=== PATIENT | female | born 1980 | race Caucasian/White ===

== ENCOUNTER 2022-06-08 16:25 | Emergency (ER) | payer OTHER, SELFPAY ==
[2022-06-08 16:34] VITALS: BP 145/75; PULSE 112; RESP 18; TEMP 36.4; O2SAT 100; BMI 37.1
[2022-06-08 17:11] LABS: Lactate* 1.8 mmol/L (0.5-1.9)
[2022-06-08 17:14] LABS: Appearance Urine Clear (Clear); Bilirubin Urine Negative (Negative); Blood Urine Negative (Negative); Color Urine Yellow (Yellow); Glucose Urine Negative (Negative); Ketones Urine Negative (Negative); Leukocyte Esterase Urine Negative (Negative); Nitrite Urine Negative (Negative); Protein Urine Negative (Negative); Specific Gravity Urine <= 1.005 (1.000-1.030); Urobilinogen Urine 0.2 (0.2-1.0); pH Urine 6.5 (5.0-8.5)
[2022-06-08 17:24] LABS: Squamous Epithelial Cell Urine Few (None-Few); WBC Urine 0-2 (0-5)
[2022-06-08] MEDS: 0.9 % SODIUM CHLORIDE 1000 ml 1,000 ML IV (17:26)
[2022-06-08 17:27] LABS: Albumin* 4.2 g/dL (3.3-5.0); Basophils Percent Auto 0.1 % (0.0-3.0); Chloride* 108 mmol/L (96-114); Eosinophils Percent Auto 0.3 % (0.0-7.0); Hematocrit 41.3 % (33.0-51.0); Hemoglobin* 13.7 gm/dL (12.0-16.0); Immature Granulocytes Abs Auto 0.03 K/uL (0.00-0.30); Lymphocytes Percent Auto 21.2 % (20-44); Mean Corpuscular HGB Conc 33 gm/dL (32-36); Mean Corpuscular Hemoglobin 28 pg (26-34); Mean Corpuscular Volume 84 fL (80-100); Monocytes Percent Auto 9.3 % (0.0-11.0); Neutrophils Percent Auto 68.8 % (42.0-72.0); Platelet Count* 277 K/uL (140-440); RDW Coefficient of Variation % 14.4 % (11.5-15.5); Red Blood Count 4.94 m/uL (4.00-5.20); Sodium* 135 mmol/L (135-149); White Blood Count* 11.77 K/uL (4.50-11.00)
[2022-06-08 17:30] LABS: Carbon Dioxide* 21 mmol/L (20-32); Creatinine* 0.6 mg/dL (0.5-1.5); Estimated Glomerular Filt Rate 116 ml/min
[2022-06-08 17:31] LABS: Alanine Aminotransferase* 21 U/L (4-35); Alkaline Phosphatase* 82 U/L (40-150); Aspartate Amino Transferase* 30 U/L (12-35); Bilirubin Direct* 0.3 mg/dL (0.0-0.5); Bilirubin Total* 0.5 mg/dL (0.1-1.5); Blood Urea Nitrogen* 6 mg/dL (5-24); Calcium* 9.5 mg/dL (8.4-10.6); Glucose* 108 mg/dL (60-115); Total Protein* 7.9 g/dL (6.0-8.3)
[2022-06-08 17:33] LABS: C Reactive Protein* 1.4 mg/dL (0.5-1.0)
[2022-06-08 17:35] LABS: Slide Review Reflex No
[2022-06-08 18:01] VITALS: BP 133/70; PULSE 78; RESP 18; O2SAT 100
--- NOTE | 2022-06-08 18:09 | ED.GENADULT ---
HPI - General Adult General Chief complaint: Shortness of Breath/Dyspnea Stated complaint: ,SHOULDER,BACK PAIN,HPB - ON BLOOD THINNER Time Seen by Provider: 06/08/22 16:31 Source: patient Mode of arrival: ambulatory Limitations: no limitations History of Present Illness HPI narrative: 42-year-old female at 9 weeks gestation coming in today concerned about possibility of a blood clot. Patient states that she was recently diagnosed with a clotting disorder and was started on Lovenox this last Wednesday so 3 days ago. Since then she states that she has been vomiting multiple times, although she has had vomiting before this as well. She states that she has a soreness in her left shoulder. She states that she feels sweaty and short of breath and she has felt this way for 3 days now. She denies any abdominal cramping or vaginal bleeding. She denies any anterior chest pain. She states that she has no appetite. She feels nauseated all the time. Upon arrival to the ER patient was very anxious according to nursing staff, hyperventilating and was difficult for her to slow down her speech. Her blood pressure on presentation was 145/75. Patient has had a 2nd trimester loss with her previous . She also has a history of fatigue, obstructive sleep apnea, asthma and anxiety. She does have a prescription for lorazepam which she has not been taking. Related Data Home Medications Medication Instructions Recorded Confirmed enoxaparin 40 mg/0.4 mL mg 06/08/22 subcutaneous syringe Allergies Allergy/AdvReac Type Severity Reaction Status Date / Time Sulfa (Sulfonamide Allergy Verified 06/08/22 16:34 Antibiotics) Review of Systems Status of ROS: Reports: 10 or more systems reviewed and unremarkable except as noted in History and below [facility] Social History Smoking Status: Never smoker Do you use any of these nicotine containing products: None How often do you have a drink containing alcohol: monthly or less AUDIT-C Alcohol total score: 1 Non-prescribed substance use: denies use Exam Narrative: Exam Narrative: Overweight, well-developed patient in no acute distress although she is a bit anxious. Alert and oriented. Answers questions appropriately. Thoughts are goal oriented and rational. No tangential or magical thinking noted. Patient speaks in full sentences without needing to catch her breath. HEENT: Normocephalic atraumatic. Pupils are equally round reactive to light. Extraocular muscles are intact. Conjunctivae are moist without any icterus noted. Moist mucous membranes. Posterior pharynx is normal. Neck is soft without any lymphadenopathy or thyromegaly. No masses are appreciated. Cardiovascular: Heart is regular rate and rhythm S1 and S2 are present without any murmurs. Lungs: Clear to auscultation bilaterally no wheezes rhonchi or rales are appreciated. Patient takes deep breaths without any discomfort. Abdomen: Soft and nontender nondistended with normal bowel sounds. Extremities: Bilateral lower extremities are without edema. Normal DP and PT pulses. Skin: Well perfused without any obvious rashes. Skin is warm and dry, no diaphoresis evident on exam. Const: Vital Signs, click to edit/add: Vital Signs - 24 hr 06/08/22 16:34 06/08/22 18:01 Temperature 97.6 F Pulse Rate [Right Pulse Oximeter] 112 H 78 Respiratory Rate 18 18 Blood Pressure [Ri ght Forearm] 145/75 H 133/70 Pulse Oximetry 100 100 Oxygen Delivery Me thod Room Air Room Air Course Course Hospital Course: IV was started and patient received a L of normal saline and IV Zofran. She was feeling significantly better. Her lab work was unremarkable. Her blood pressure came down to 119 systolic in her pulse came down into the 70s. She remained at 100% on room air. I did go re-examine the patient and she stated that she was feeling significantly better. She stated that her heart was no longer pounding and that she did not feel nauseated or diaphoretic and that she was no longer feeling any shortness of breath. In fact patient was eating dinner without difficulty. Vital Signs Vital signs: Initial Vital Signs Temperature 97.6 F 06/08/22 16:34 Temperature Source Temporal Artery Scan 06/08/22 16:34 Pulse Rate 112 H 06/08/22 16:34 Respiratory Rate 18 06/08/22 16:34 Blood Pressure 145/75 H 06/08/22 16:34 Blood Pressure Mean 98 06/08/22 16:34 Blood Pressure Position Sitting 06/08/22 16:34 Pulse Oximetry 100 06/08/22 16:34 Oxygen Delivery Method 06/08/22 16:34 Vital Signs Temperature 97.6 F 06/08/22 16:34 Pulse Rate 112 H 06/08/22 16:34 Respiratory Rate 18 06/08/22 16:34 Blood Pressure 145/75 H 06/08/22 16:34 Pulse Oximetry 100 06/08/22 16:34 Oxygen Delivery Method 06/08/22 16:34 Temperature 97.6 F 06/08/22 16:34 Pulse Rate 78 06/08/22 18:01 Respiratory Rate 18 06/08/22 18:01 Blood Pressure 133/70 06/08/22 18:01 Pulse Oximetry 100 06/08/22 18:01 Oxygen Delivery Method 06/08/22 18:01 Medical Decision Making MDM Narrative Medical decision making narrative: 42-year-old female at 9 weeks gestation coming in today with shortness of breath, left shoulder pain with concerns of a PE. Given her normal examination and normal vital signs and the fact that she is on Lovenox I think the likelihood of a PE is very low. I did offer her the option of doing a chest CT we discussed risk benefit and using joint decision making we decided against it at this time and that the risk would outweigh the benefit. We discussed hydration and rest. We discussed following up as scheduled. We discussed returning to the ER should her symptoms worsen. Given that the patient was feeling significantly better after IV fluids I do not think any further management is needed at this time. Patient had no other concerns Medical Records Medical records reviewed: Yes I reviewed the patient's medical records Lab Data Lab results reviewed: Yes I reviewed the patient's lab results Labs: Lab Results 06/08/22 06/08/22 06/08/22 Range/Units 16:52 17:05 17:05 WBC 11.77 H (4.50-11.00) K/uL RBC 4.94 (4.00-5.20) m/uL Hgb 13.7 (12.0-16.0) gm/dL Hct 41.3 (33.0-51.0) % MCV 84 (80-100) fL MCH 28 (26-34) pg MCHC 33 (32-36) gm/dL RDW Coeff of Zana 14.4 (11.5-15.5) % Plt Count 277 (140-440) K/uL Neut % (Auto) 68.8 (42.0-72.0) % Lymph % (Auto) 21.2 (20-44) % [place] % (Auto) 9.3 (0.0-11.0) % Eos % (Auto) 0.3 (0.0-7.0) % Baso % (Auto) 0.1 (0.0-3.0) % Neut # (Auto) 8.10 H (1.7-7.0) K/uL Lymph # (Auto) 2.50 (0.90-2.90) K/uL [place] # (Auto) 1.10 H (0.00-0.90) K/UL Eos # (Auto) 0.00 (0.00-0.50) K/uL Baso # (Auto) 0.00 (0.00-0.30) K/uL Abs Immat Gran (auto) 0.03 (0.00-0.30) K/uL Sodium (135-149) mmol/L Potassium (3.6-5.1) mmol/L Chloride (96-114) mmol/L Carbon Dioxide (20-32) mmol/L BUN (5-24) mg/dL Creatinine (0.5-1.5) mg/dL Estimated Creat Clear Estimated GFR ml/min Glucose (60-115) mg/dL Lactate (0.5-1.9) mmol/L Calcium (8.4-10.6) mg/dL Total Bilirubin (0.1-1.5) mg/dL Direct Bilirubin (0.0-0.5) mg/dL AST (12-35) U/L ALT (4-35) U/L Alkaline Phosphatase (40-150) U/L C-Reactive Protein (0.5-1.0) mg/dL Total Protein (6.0-8.3) g/dL Albumin (3.3-5.0) g/dL Urine Color Yellow (Yellow) Urine Appearance Clear (Clear) Urine pH 6.5 (5.0-8.5) Ur Specific Avery <= 1.005 (1.000-1.030) Urine Protein Negative (Negative) Urine Glucose (UA) Negative (Negative) Urine Ketones Negative (Negative) Urine Blood Negative (Negative) Urine Nitrite Negative (Negative) Urine Bilirubin Negative (Negative) Urine Urobilinogen 0.2 (0.2-1.0) Ur Leukocyte Esterase Negative (Negative) Urine RBC 2-5 A (0-2) Urine WBC 0-2 (0-5) Ur Squamous Epith Cells Few (None-Few) Urine Bacteria None (None) POC Troponin I 0.00 L (0.01-0.04) ng/ml 06/08/22 06/08/22 Range/Units 17:05 17:05 WBC (4.50-11.00) K/uL RBC (4.00-5.20) m/uL Hgb (12.0-16.0) gm/dL Hct (33.0-51.0) % MCV (80-100) fL MCH (26-34) pg MCHC (32-36) gm/dL RDW Coeff of Zana (11.5-15.5) % Plt Count (140-440) K/uL Neut % (Auto) (42.0-72.0) % Lymph % (Auto) (20-44) % [place] % (Auto) (0.0-11.0) % Eos % (Auto) (0.0-7.0) % Baso % (Auto) (0.0-3.0) % Neut # (Auto) (1.7-7.0) K/uL Lymph # (Auto) (0.90-2.90) K/uL [place] # (Auto) (0.00-0.90) K/UL Eos # (Auto) (0.00-0.50) K/uL Baso # (Auto) (0.00-0.30) K/uL Abs Immat Gran (auto) (0.00-0.30) K/uL Sodium 135 (135-149) mmol/L Potassium 4.0 (3.6-5.1) mmol/L Chloride 108 (96-114) mmol/L Carbon Dioxide 21 (20-32) mmol/L BUN 6 (5-24) mg/dL Creatinine 0.6 (0.5-1.5) mg/dL Estimated Creat Clear 121.20 Estimated GFR 116 ml/min Glucose 108 (60-115) mg/dL Lactate 1.8 (0.5-1.9) mmol/L Calcium 9.5 (8.4-10.6) mg/dL Total Bilirubin 0.5 (0.1-1.5) mg/dL Direct Bilirubin 0.3 (0.0-0.5) mg/dL AST 30 (12-35) U/L ALT 21 (4-35) U/L Alkaline Phosphatase 82 (40-150) U/L C-Reactive Protein 1.4 H (0.5-1.0) mg/dL Total Protein 7.9 (6.0-8.3) g/dL Albumin 4.2 (3.3-5.0) g/dL Urine Color (Yellow) Urine Appearance (Clear) Urine pH (5.0-8.5) Ur Specific Avery (1.000-1.030) Urine Protein (Negative) Urine Glucose (UA) (Negative) Urine Ketones (Negative) Urine Blood (Negative) Urine Nitrite (Negative) Urine Bilirubin (Negative) Urine Urobilinogen (0.2-1.0) Ur Leukocyte Esterase (Negative) Urine RBC (0-2) Urine WBC (0-5) Ur Squamous Epith Cells (None-Few) Urine Bacteria (None) POC Troponin I (0.01-0.04) ng/ml ECG Data Attestation: I personally reviewed and interpreted this ECG as follows: (Normal sinus rhythm, heart rate 90) Discharge Plan Discharge Clinical Impression: Shortness of breath Patient Disposition: Home, Self-Care Condition: Improved Additional Instructions: Stay well hydrated and get plenty of rest. Consider discussing anti nausea medications with your OBGYN. Return to the ER if your symptoms worsen. Prescriptions: No Action enoxaparin 40 mg/0.4 mL syringe Label Comments: INJECT 0.4 ML (40MG) EVERY DAY BY SUBCUTANEOUS ROUTE. Follow Up/Referrals: Provider,Not a Local [Primary Care Provider] - Stand Alone Forms: [employer] Info Instructions
[2022-06-08 18:36] VITALS: BP 119/73; PULSE 92; RESP 18; O2SAT 100
== END 2022-06-08 18:37 | disposition home or self-care (01) ==
PROVIDERS: Emergency Provider Family Medicine
DX: R06.02 Shortness of breath (principal); Z3A.09 9 weeks gestation of pregnancy
CPT/HCPCS: 36415; 80048; 80076; 81001; 83605; 84484; 85025; 86140; 87086; 93005; 99284; J7030

== ENCOUNTER 2022-08-26 12:11 | Outpatient (CLI) | payer OTHER, SELFPAY ==
--- OUTSIDE RECORDS SUMMARY | 2022-08-26 12:17 | XMS_ITS ---
:1980 Author Care Team Providers Name Role Phone Ignacio Gorman Primary Care Provider Unavailable Allergies Code Code System Name Reaction Severity Status Onset Sulfa (Sulfonamide Antibiotics) Hives ? Active ? Medications Name Status Start Date Stop Date ? ? adrenal cortex (porcine) Active ? Not virginie ilable amoxicillin 500 mg-potassium clavulanate 125 mg tablet Completed ? 07/14/2021 TAKE 1 TABLET BY MOUTH TWICE DAILY WITH MEALS FOR 7 DAYS aspirin 81 mg capsule Active ? Not availa ble Take 1 capsule every day by oral route. BD Luer-Nando Syringe 3 mL 22 x 1 1/2 Active ? Not available USE DIRECTED BD Regular Bevel [place] 18 gauge x 1 Active ? Not available USE DIRECTED Chlorella Active ? Not available Culturelle Probiotic Active ? No t available enoxaparin 40 mg/0.4 mL subcutaneous syringe Active ? Not available fluconazole 150 mg tablet Completed ? 2021 FreeStyle Fausto 2 [place] Active ? Not virginie ilable TO BE USED TO READ BLOOD SUGARS PER SALES ASSISTANT ENTERTAINMENT AND MEDIA''S DIRECTIONS. FreeStyle Fausto 2 Sensor kit Active ? Not available TO BE USED TO READ BLOOD SUGARS PER SALES ASSISTANT ENTERTAINMENT AND MEDIA''S DIRECTIONS. lorazepam 1 mg tablet Completed ? 07/07/2022 TAKE 1 BY MOUTH THREE TIMES DAILY NEEDED methylergonovine 0.2 mg tablet Completed ? 0 07/07/2022 TAKE 1 TABLET BY MOUTH EVERY 4 HOURS FOR 6 DOSES metronidazole 0.75 % (37.5 mg/5 gram) vaginal gel Completed ? 07/07/2022 APPLY 1 APPLICATORFUL IN THE VAGINA DAILY FOR 5 DAYS metronidazole 500 mg tablet Active ? Not available TAKE 1 TABLET BY MOUTH TWICE DAILY FOR 10 DAYS. TAKE AFTER FINISHING METHERGINE. NAIL MACHINE OPERATOR Thyroid 15 mg tablet Active ? Not avai lable TAKE ONE TABLET BY MOUTH EVERY MORNING 30 MINUTES BEFORE FOOD Pancreatic Enzyme Active ? Not available Active ? Not available w/ [place] 3 Progesterone in Oil Active ? Not availabl e 100mg/mL Progesterone in Oil 100mg/mL - Inject 200 mg (2mL) twice weekly Vitamin D Active ? Not available 5,000IU Notes: - iodoral iodine - Prescribed Ortiz Banerjee, DO Problems Name Status Onset Date Source ? History of Miscarriage Active 06/20/2021 ? Subclinical Hypothyroidism Active ? ? 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 ? Anxiety Active ? ? Heart Murmur Active ? ? Plasminogen Activator Inhibitor Assay Active ? ? Procedures Date Name Performed by ? 07/08/2021 Dilation and Curettage Information not a vailable Notes: Retained Placenta 11/08/2018 Appendectomy Information not avai lable 01/06/2017 Tonsilectomy/adenoids Information not av ailable Results Lab Results None recorded. 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 Social History Tobacco Smoking Status Never Smoker Vaccine List None recorded. Plan of Care Reminders Provider Appointments None recorded. ? ? Lab None recorded. ? ? Referral None recorded. ? ? Procedures None recorded. ? ? Surgeries None recorded. ? ? Imaging None recorded. ? ? Vitals None recorded.
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
--- OUTSIDE RECORDS SUMMARY | 2022-08-26 12:17 | XMS_ITS | Encounter Summary ---
:1980 Author Reason for Visit consult Assessment and Plan 1. 5,10-Methylenetetrahydrofolate reduc tase deficiency It was so nice to talk with you today! Please feel free to contact our office with any further questions or concerns! Continue lovenox, aspirin 81mg, l-methyl folate 1gm daily while 2. 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 Plan of Care Reminders Provider Appointments None recorded. ? ? Lab None recorded. ? ? Referral None recorded. ? ? Procedures None recorded. ? ? Surgeries None recorded. ? ? Imaging None recorded. ? ? Medications Name Start Date ? ? adrenal cortex (porcine) ? aspirin 81 mg capsule ? Take 1 capsule every day by oral route. BD Luer-Nando Syringe 3 mL 22 x 1 1/2 ? USE DIRECTED BD Regular Bevel [place] 18 gauge x 1 ? USE DIRECTED Chlorella ? Culturelle Probiotic ? enoxaparin 40 mg/0.4 mL subcutaneous syringe ? INJECT 0.4 ML (40MG) EVERY DAY BY SUBCUTANEOUS ROUTE. FreeStyle Fausto 2 [place] ? TO BE USED TO READ BLOOD SUGARS PER ENVIRONMENTAL PROJECTS ADVISOR''S D IRECTIONS. FreeStyle Fausto 2 Sensor kit ? TO BE USED TO READ BLOOD SUGARS PER ENVIRONMENTAL PROJECTS ADVISOR''S D IRECTIONS. metronidazole 500 mg tablet ? TAKE 1 TABLET BY MOUTH TWICE DAILY FOR 10 DAYS. TAKE AFTER FINISHING METHERGINE. FLAT SCREEN WORKER Thyroid 15 mg tablet ? TAKE ONE TABLET BY MOUTH EVERY MORNING 30 MINUTES BEF ORE FOOD Pancreatic Enzyme ? ? w/ [place] 3 Progesterone in Oil ? 100mg/mL Progesterone in Oil 100mg/mL - Inject 200 mg (2mL) tw ice weekly Vitamin D ? 5,000IU Notes: - iodoral iodine - Prescribed b spring Banerjee, DO Medications Administered None recorded. Vitals None recorded. Results Lab Results None recorded. Allergies Code Code System Name Reaction Severity Onset Sulfa (Sulfonamide Antibiotics) Hives ? ? Problems Name Status Onset Date Source ? [...] lable 01/06/2017 Tonsilectomy/adenoids Information not av ailable Vaccine List None recorded. Social History Tobacco Smoking Status Never Smoker What is your level of alcohol None consumption? How many children do you have? 1 Are you currently employed? 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 Y Do you or have you ever used any other N forms of tobacco or nicotine? Do you use any illicit or recreational N drugs? Is blood transfusion acceptable in an Y emergency? What is your exercise level? Notes: Mi nimal What is your relationship status? Notes : Cristian Hough Family History Relation Problem Onset Age of Age Notes Father Family history of Cardiovascular (No Information) N/A (No Notes) disease Mother Family history of Hypertension (No Information) N/A (No Notes) Mother Family history of polyp of colon (No Information) N/A (No Notes) Functional Status Unknown. 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 History of Present Illness Note: <div>Zulema is a new patient who presents as tele med to discuss recent diagnosis of LENKA 4G/4G and MTHFR C677T Heterozygous . Her is on the phone visit as well. </div><div>
</div><div>Zulema is currently 8-9wk GA and is managed by a barrel repairer group. </div><div>She has significant history of previous 2nd trimester loss.</div><div>
</div><div>She is currently on lovenox daily, Progesterone support (350mg SL), asa 81mg, l- methylfolate </div><div>
</div><div>
</div><div>Discussed in detail LENKA and MTHFR impact on and well adult health. Discussed MTHFR has risks r/t CV health along with issues metabolizing folic acid and Vit B. </div&g t;<div>
</div><div>Discussed [facility] MTHFR / LENKA protocol related to medications and screening with growth ultrasound timing and twice weekly testing (NST / BPP) and labor induction if beyond 40 weeks. Discussed risks for growth and placental perfusion.</div><div>
</div><div>They reported they are planning on home and concerned of any contraindications. Discussed contraindications would need to be discussed with delivering barrel repairer. Discussed risk for blood clots, bleeding with lovenox, concerns with placental perfusion. Recommended if note any signs of blood clots or intolerance to labor (ie: late decels) it would be appropriate to consider changing delivery locations to the hospital for continuous monitoring and possible need for emergency delivery. Encouraged to meet with collaborating OBGYN to discuss if need to transferto hospital plan of care. </div><div>
</div><div>
</div><div>All questions were answered at this time. They verbalized appreciation. Encouraged if they or their OB providers have any further questions or concerns to please contact our office for further assistance. </div><div>
</div><div>This is a{{new* established}}patient encounter. The approximate amount of time spent in discussion with this patient, more than 50% of which was related to counseling and care coordination was:{{new patient: 10 min [id number] new patient: 20 min 36336 new patient 30 min 56079* new patient 45 min 55831 new patient 60 min 47127 estb. Pt: 10 min 80206 estb. Pt: 15 min 47980 estb. Pt: 25 min 10893 estb. Pt: 40 min 57037}}</div> Review of Systems None recorded. Physical Exam ? Notes: <div>conversation and tone a ppropriate </div>
--- OUTSIDE RECORDS SUMMARY | 2022-08-26 12:17 | XMS_ITS | Clinical Summary ---
:1980 Author Organization [employer] [facility] [place] [address] Care Team Providers Name Role Phone Dave Lucas MD Unavailable [phone] Fabrizio Metzger MD Unavailable [phone] Angela Milton MD Primary Care Provider Allergies Active Allergy Reactions Severity Noted Date Comments Sulfa (Sulfonamide Antibiotics) Hives 6 Medications Medication Sig Dispensed Refills Start Date End Date Status triamcinolone Apply topically to 80 g 1 03/06/2019 Active (ARISTOCORT) 0.1 % affected area(s) 2 ointmentIndications: times daily. Use Chronic eczema for up to 2 weeks at a time flaxseed oil-omega Take by mouth. 0 06/02/2019 Active 3,6,9 1,300 mg-845 mg -117 mg-117 mg cap calcium Take by mouth. 0 06/02/2019 Acti ve carbonate-vitamin D3 600 mg(1,500mg) -800 unit tab cetirizine (ZYRTEC) Take 1 tablet by 0 07/28/2019 Active 10 mg tablet mouth once daily. Take by mouth. 0 06/14/2020 Acti ve [id number] 6-dha 30 mg iron-1mg -200 mg cap lecithin 1,200 mg Take by mouth. 0 06/14/2020 Active cap albuterol HFA Inhale 2 Puffs by 2 Inhaler 5 06/14/2020 Active (PROAIR HFA) 90 mouth 4 times daily mcg/actuation if needed. inhalerIndications: Post-viral reactive airway disease DULERA 200-5 Inhale 2 Puffs by 3 Inhaler 3 06/14/2020 Active mcg/actuation mouth 2 times inhalerIndications: daily. Moderate persistent asthma with exacerbation montelukast Take 1 tablet by 90 tablet 3 06/14/2020 Active (SINGULAIR) 10 mg mouth at bedtime. tabletIndications: Seasonal allergies iron,carb/vit C/vit Take 0.5 Tablets by 0 Active B12/folic (IRON 100 mouth. PLUS ORAL) ascorbic acid, Take 1,000 mg by 0 Active vitamin C, (Vitamin mouth once daily. C) 1,000 mg tablet Lactobac Take 4 Tablets by 0 Ac tive no.41/Bifidobact mouth. no.7 (PROBIOTIC-10 ORAL) LORazepam (Ativan) 1 Take 1 mg by mouth 0 Active mg tablet one time if needed. As needed acetaminophen Take 1-2 Tablets 100 Tablet 0 07/07/2021 Active (TYLENOL) 325 mg (325-650 mg) by tabletIndications: mouth every 4 hours Postoperative state if needed for Pain. Max acetaminophen dose: 4000mg in 24 hrs. ibuprofen (ADVIL; Take 1-3 Tablets 100 Tablet 0 07/07/2021 Active MOTRIN) 200 mg (200-600 mg) by tabletIndications: mouth every 6 hours Postoperative state if needed for Pain. progesterone USE 1 CAPSULE 0 06/05/2021 Ac tive micronized VAGINALLY AT (PROMETRIUM) 200 mg BEDTIME DIRECTED capsule transmitter for Change every 90 1 Each 0 05/27/2022 Active continuous blood days glucose monitor (CGM)Indications: Less than 8 weeks gestation of , Elevated hemoglobin A1c Dexcom G6 Sensor for Change sensor every 9 Each 3 2 Active continuous blood 10 days glucose monitor (CGM)Indications: Less than 8 weeks gestation of , Elevated hemoglobin A1c Dexcom G6 Personal Security Specialist To be used to read 1 Each 0 05/27/2022 Active for continuous blood blood sugars follow glucose monitor stroboscope operator (CGM)Indications: directions. Less than 8 weeks gestation of , Elevated hemoglobin A1c continuous glucose To be used to read 1 Each 0 06/12/2022 Active monitor READER blood sugars per (FREESYLE stroboscope operator's FAUSTO)Indications: directions-needs Elevated hemoglobin Freestyle Fausto 2 A1c continuous glucose To be used to read 1 Each 0 06/12/2022 Active monitor SENSOR KIT blood sugars per (FREESYLE stroboscope operator's FAUSTO)Indications: directions-needs to Elevated hemoglobin be Freestyle Fausto A1c 2 Active Problems Problem Noted Date Advanced maternal age, 1st , third trimester 09/08/2019 Encounter for supervision of normal first in third trimester 03/06/2019 02/20/2019 Overview: Formatting of this note is dif ferent from the original. GBS POSITIVE per CNM testing. Estimated Date of Delivery: 10/13/19 Patient's last menstrual period was 12/10. Last Tdap- 07/28/2019 Last Flu vaccine- 07/28/2019 Glucose (GTT) result- Component Latest Ref Rng & Units 06/30/2019 HEMOGLOBIN 12.0 - 16.0 g/dL 11.8 (L) MCV 80 - 100 fL 88 GLUCOSE,GESTATIONAL 65 - 139 mg/dL 102 20 week US: No 20 week ultrasound perfor med Allergies Allergen Reactions ? ? Sulfa (Sulfonamide Antibiotics) Hives OB History Para Term AB Living 1 0 0 0 0 0 SAB TAB Ectopic Multiple Live Births 0 0 0 0 0 # Outcome Date GA Lbr Momo/2nd Weight Sex Delivery Anes PTL Lv 1 Current Create lab flowsheet for OB labs- Component Latest Ref Rng & Units 02/06/2019 9 02/06/2019 2:43 PM 2:43 PM 2:43 PM HEMOGLOBIN 12.0 - 16.0 g/dL 13.2 MCV 80 - 100 fL 83 ANTIBODY SCREEN Negative SPECIMEN EXPIRATION DATE/TIME RUBELLA IGG ANTIBODY Positive 1.58 FACTOR V LEIDEN Mutation not detected INTERPRETATION HIV-1/HIV-2 ANTIBODY Non-Reactive Non-Reactive ABORH HBSAG Nonreactive Nonreactive TREPONEMA PALLIDUM Negative Negative Component Latest Ref Rng & Units 02/06/2019 2:45 PM HEMOGLOBIN 12.0 - 16.0 g/dL MCV 80 - 100 fL ANTIBODY SCREEN Negative Negative SPECIMEN EXPIRATION DATE/TIME 02/09/19 23:59 RUBELLA IGG ANTIBODY FACTOR V LEIDEN Mutation not detected INTERPRETATION HIV-1/HIV-2 ANTIBODY Non-Reactive ABORH A Rh Positive HBSAG Nonreactive TREPONEMA PALLIDUM Negative Component Latest Ref Rng & Units 02/14/2019 HEMOGLOBIN 12.0 - 16.0 g/dL MCV 80 - 100 fL ANTIBODY SCREEN Negative SPECIMEN EXPIRATION DATE/TIME RUBELLA IGG ANTIBODY FACTOR V LEIDEN Mutation not detected Mutation not dete cted INTERPRETATION Patient does not carry the Leiden (G169 1A) mutation on either copy of the Factor V (F5) gene. HIV-1/HIV-2 ANTIBODY Non-Reactive ABORH HBSAG Nonreactive TREPONEMA PALLIDUM Negative Past Medical History: Diagnosis Date ? ? Gastroesophageal reflux disease without esophagitis 11/27/2016 EGD 11/2016 normal, retry omeprazole ? ? Lumbar disc herniation L4,L5 ? ? Migraine family history and personal history of head injury ? ? Obesity (BMI 30-39.9) 05/14/2016 ? ? AMARA (obstructive sleep apnea) ? ? Post-viral reactive airway disease 05/14/2016 ? ? Sacroiliac inflammation (HC) right ? ? Vitamin D deficiency 05/14/2016 Past Surgical History: Procedure Laterality Date ? ? APPENDECTOMY ? ? ESOPHAGOGASTRODUODENOSCOPY EGD 11/2016 normal, retry omeprazole ? ? LAPAROSCOPIC APPENDECTOMY 11/18/2018 DR EPPERSON [facility] ? ? MOLE REMOVAL on back, benign ? ? TONSILLECTOMY 2016 and adenoids ? ? WISDOM TEETH EXTRACTION No data on file. Problems (from 02/14/19 to pre sent) No problems associated with this episod tammy Almeida, JOSELYNC.....02/20/2019 10:19 A M Herpes 02/06/2019 Gastroesophageal reflux disease without esophagitis Overview: EGD 11/2016 normal, retry omeprazole Post-viral reactive airway disease 05/14/2016 Overview: PFT Vitamin D deficiency 05/14/2016 Obesity (BMI 30-39.9) 05/14/2016 Encounters Date Type Specialty Care Team Description 07/20/2022 Telephone Louie Serrano Questio ns MD 07/20/2022 Transcribe Orders Referring, Provider 07/15/2022 Transcribe Orders Edilia Hall HUC 06/26/2022 Telephone Louie Serrano, Imaging (Ultrasound) 06/10/2022 Telephone Louie Serrano Questio ns (Pt requesting MD tatum Lambert 2 -cg) 06/09/2022 Telephone Louie Serrano, Imaging 06/02/2022 Telephone Louie Serrano, Prior A uthorization (CGM) 05/27/2022 Office Visit Louie Serrano, Consult (Discuss labs) 05/27/2022 Telephone Clinic, [facility] 05/27/2022 Travel from Last 3 Months Immunizations Name Administration Dates Next Due Human Papilloma Virus Vaccine 03/24/2011, 02/25/2007 Influenza, IIV3 (Age >=3 years) 08/17/2006 Influenza, IIV4 07/28/2019 Td (Age >=7 Years) 02/19/2006 Tdap 07/28/2019, 10/08/2018, 08/17/2006 Family History Medical History Relation Name Comments Alcoholism Father Cancer Father 2 brain tumors Drug Abuse Father cocaine Heart Disease Father at 47, card iomegaly Blood Disease Maternal Grandfather Factor 5 Le iden, cardioversion Heart Disease Maternal Grandfather A-Fib Arthritis Maternal Grandmother osteoarthri tis Blood Disease Maternal Grandmother hemachromot osis, aortic stenosis-valve replacement Hyperlipidemia Maternal Grandmother genetic Other Maternal Grandmother glaucoma, m acular degeneration Stroke Maternal Grandmother Hypertension Mother Cancer-colon Paternal Grandfather around age 60 Cancer-ovarian Paternal Grandmother metasasis t o brain, lung, stomach Relation Name Status Comments Father Maternal Grandfather Maternal Grandmother Mother Paternal Grandfather Paternal Grandmother Social History Tobacco Use Types Packs/Day Years Used Date Passive Smoke Exposure - Never Smoker Smokeless Tobacco: Never Used Tobacco Cessation: Counseling Given: Yes Alcohol Use Standard Drinks/Week Comments No 0 (1 standard drink = 0.6 oz pure alcoho l) Rarely Alcohol Habits Answer Date Recorded How often do you have a drink containing alcohol? Not asked How many drinks containing alcohol do you have on a typical Not asked day when you are drinking? How often do you have six or more drinks on one occasion? No t asked Comment: Rarely 01/03/2019 Sex Assigned at Date Recorded Not on file Obstetrics History Para Term AB IAB SAB Ectopic Multiple Living Live Births 1 0 0 0 0 0 0 0 0 0 Date Outcome GA Total Labor/2nd/3rd Weight Sex Delivery Anes PTL Sandrita A 1 A5 Name Clin Labor Last Filed Vital Signs Vital Sign Reading Time Taken Comments Blood Pressure 131/83 07/07/2021 6:00 PM CDT Pulse 78 07/07/2021 6:15 PM CDT Temperature 36.7 ??C (98.1 ??F) 02/14/2019 7:45 AM CDT Respiratory Rate 16 07/07/2021 4:15 PM CDT Oxygen Saturation 98% 07/07/2021 6:15 PM CDT Inhaled Oxygen Concentration - - Weight 105.7 kg (233 lb) 01/30/2021 3:02 PM CDT Height 169 cm (5' 6.54) 01/30/2021 3:02 PM CDT Body Mass Index 37 01/30/2021 3:02 PM CDT Plan of Treatment Health Maintenance Due Date Last Done Comments COVID-19 vaccine series 1980 (#1) Depression screening for 02/07/2020 02/06/2019, 02/06/2019, age 12+ 02/06/2019, Additional history exists BMI (ht and wt on same day) 01/30/2022 01/30/2021, 08/25/20 19, for age 18+ 05/05/2019, Additional history exists Influenza for age 9-49 07/09/2022 07/28/2019, 08/17/2006 Pap test for age 21-65 07/07/2026 07/07/2021, 07/07/2021, 01/12/2017, Additional history exists Tetanus booster 07/28/2029 07/28/2019, 10/08/2018, 08/17/2006, Additional history exists Hepatitis C screening for Completed 10/30/2002 age 18-79 Tdap Completed 07/28/2019, 10/08/2018, 08/17/2006 Pneumococcal series for age Aged Out No l onger eligible 19-64 based on patient 's age to complete this topic Results Not on filefrom Last 3 Months Insurance Payer Benefit Plan / Subscriber ID Effective Dates Phone Addre ss Type Group [employer] HP [id number] 2019-Presen [address] MIG[place]EL A Asencio [id number] [employer] CIGNA HP [id number] 2019-Presen [address] romaine MIGUEL A MCGINNIS [id number] [employer] Employer 11/08/2000 ATTN: [employer] (Home) [facility] [address] [place] [address] Advance Directives Latest Code Status on File Code Status Date Activated Date Inactivated Comments Full Code 07/07/2021 4:06 PM 07/07/2021 10:06 PM Code Status Discussion: Discussed Full Code 07/07/2021 1:40 PM 07/07/2021 4:06 PM Code Status Discussion: Discussed Care Teams Wafer Abrading Machine Tender Relationship Specialty Start Date End Date Angela Milton MD PCP - General Family Practice 12/29/18 [address] [place] [address] Dave Lucas, Surgery - Otolaryngology 01/12 Fabrizio Metzger MD Pulmonary Medicine 01/12/17 [address] [address] [place] [address] [address] [place] [address]
== END 2022-08-26 12:12 | disposition home or self-care (01) ==
LOC: US 12:12
PROVIDERS: Visit Provider Pediatrics Neonatal-Perinatal Medicine
DX: O09.522 Supervision of elderly multigravida, second trimester (principal); Z3A.20 20 weeks gestation of pregnancy
CPT/HCPCS: 76811